=== PATIENT | male | born 1970 | race Caucasian/White ===

== ENCOUNTER 2021-10-28 05:28 | Emergency (ER) | payer BC ==
[2021-10-28] MEDS ORDERED: SODIUM CHLORIDE 0.9% 500 ML 500 ML IV STA (07:33)
--- NOTE | 2021-10-28 07:42 | ED ---
General Adult HPI - General Chief complaint: Back Pain/Injury Stated complaint: Worsening Kidney Infection Time Seen by Provider: 10/28/21 07:20 Source: patient, RN notes reviewed, old records reviewed Mode of arrival: ambulatory Limitations: no limitations - History of Present Illness Initial comments: 51-year-old male presents for evaluation of right-sided flank pain. Pain has been present for the past one week. He was started on antibiotic for suspected kidney infection by his primary care physician. He also had laboratory testing which apparently resulted in some abnormal kidney function. He states he's scheduled to see the urologist within this week. He denies fever. Denies vomiting. - Related Data Allergies Allergy/AdvReac Type Severity Reaction Status Date / Time bee venom protein (honey bee) Allergy Swelling Verified 10/28/21 05:48 Review of Systems ROS Statement: Those systems with pertinent positive or pertinent negative responses have been documented in the HPI. ROS Other: All systems not noted in ROS Statement are negative. Past Medical History Past Medical History: Asthma, Hypertension History of Any Multi-Drug Resistant Organisms: None Reported Past Surgical History: No Surgical Hx Reported Past Psychological History: No Psychological Hx Reported Smoking Status: Former smoker Past Alcohol Use History: Occasional Past Drug Use History: None Reported General Exam Limitations: no limitations General appearance: alert, in no apparent distress Head exam: Present: atraumatic, normocephalic Eye exam: Present: normal appearance, PERRL ENT exam: Present: normal exam Neck exam: Present: normal inspection. Absent: tenderness, meningismus Respiratory exam: Present: normal lung sounds bilaterally. Absent: respiratory distress Cardiovascular Exam: Present: regular rate, normal rhythm GI/Abdominal exam: Present: soft, tenderness (Right-sided). Absent: distended, guarding, rebound Extremities exam: Present: normal inspection, normal capillary refill. Absent: pedal edema Back exam: Absent: CVA tenderness (R), CVA tenderness (L) Neurological exam: Present: alert, oriented X3, CN II-XII intact. Absent: motor sensory deficit Psychiatric exam: Present: normal affect, normal mood Skin exam: Present: warm, dry, intact. Absent: cyanosis, diaphoretic Course Vital Signs 10/28/21 05:44 Temperature 97.8 F Pulse Rate 72 Respiratory 18 Rate Blood Pressure 161/105 O2 Sat by Pulse 98 Oximetry Medical Decision Making - Medical Decision Making 51-year-old male with right flank pain, workup was initiated, normal CBC, no leukocytosis, normal CMP, negative urinalysis, CT was performed which shows a nonobstructing right renal care but no hydronephrosis, no definitive process to explain the patient's pain. This point he can continue to follow up as an outpatient - Lab Data Result diagrams: 10/28/21 08:25 10/28/21 08:25 Lab Results 10/28/21 10/28/21 10/28/21 Range/Units 08:25 08:25 08:25 WBC 5.4 (3.8-10.6) k/uL RBC 4.66 (4.30-5.90) m/uL Hgb 15.7 (13.0-17.5) gm/dL Hct 44.2 (39.0-53.0) % MCV 94.9 (80.0-100.0) fL MCH 33.6 (25.0-35.0) pg MCHC 35.4 (31.0-37.0) g/dL RDW 13.1 (11.5-15.5) % Plt Count 158 (150-450) k/uL MPV 8.2 Neutrophils % 71 % Lymphocytes % 17 % Monocytes % 6 % Eosinophils % 4 % Basophils % 1 % Neutrophils # 3.8 (1.3-7.7) k/uL Lymphocytes # 0.9 L (1.0-4.8) k/uL Monocytes # 0.3 (0-1.0) k/uL Eosinophils # 0.2 (0-0.7) k/uL Basophils # 0.1 (0-0.2) k/uL PT 10.5 (9.0-12.0) sec INR 1.0 (<1.2) APTT 23.4 (22.0-30.0) sec Sodium (137-145) mmol/L Potassium (3.5-5.1) mmol/L Chloride (98-107) mmol/L Carbon Dioxide (22-30) mmol/L Anion Gap mmol/L BUN (9-20) mg/dL Creatinine (0.66-1.25) mg/dL Est GFR (CKD-EPI)AfAm (>60 ml/min/1.73 sqM) Est GFR (CKD-EPI)NonAf (>60 ml/min/1.73 sqM) Glucose (74-99) mg/dL Calcium (8.4-10.2) mg/dL Total Bilirubin (0.2-1.3) mg/dL AST (17-59) U/L ALT (4-49) U/L Alkaline Phosphatase (38-126) U/L Total Protein (6.3-8.2) g/dL Albumin (3.5-5.0) g/dL Lipase (23-300) U/L Urine Color Yellow Urine Appearance Clear (Clear) Urine pH 6.0 (5.0-8.0) Ur Specific [address] 1.026 (1.001-1.035) Urine Protein Negative (Negative) Urine Glucose (UA) Negative (Negative) Urine Ketones Negative (Negative) Urine Blood Negative (Negative) Urine Nitrite Negative (Negative) Urine Bilirubin Negative (Negative) Urine Urobilinogen <2.0 (<2.0) mg/dL Ur Leukocyte Esterase Negative (Negative) 10/28/21 Range/Units 08:25 WBC (3.8-10.6) k/uL RBC (4.30-5.90) m/uL Hgb (13.0-17.5) gm/dL Hct (39.0-53.0) % MCV (80.0-100.0) fL MCH (25.0-35.0) pg MCHC (31.0-37.0) g/dL RDW (11.5-15.5) % Plt Count (150-450) k/uL MPV Neutrophils % % Lymphocytes % % Monocytes % % Eosinophils % % Basophils % % Neutrophils # (1.3-7.7) k/uL Lymphocytes # (1.0-4.8) k/uL Monocytes # (0-1.0) k/uL Eosinophils # (0-0.7) k/uL Basophils # (0-0.2) k/uL PT (9.0-12.0) sec INR (<1.2) APTT (22.0-30.0) sec Sodium 141 (137-145) mmol/L Potassium 4.4 (3.5-5.1) mmol/L Chloride 105 (98-107) mmol/L Carbon Dioxide 26 (22-30) mmol/L Anion Gap 10 mmol/L BUN 24 H (9-20) mg/dL Creatinine 0.99 (0.66-1.25) mg/dL Est GFR (CKD-EPI)AfAm >90 (>60 ml/min/1.73 sqM) Est GFR (CKD-EPI)NonAf 88 (>60 ml/min/1.73 sqM) Glucose 100 H (74-99) mg/dL Calcium 9.0 (8.4-10.2) mg/dL Total Bilirubin 0.7 (0.2-1.3) mg/dL AST 32 (17-59) U/L ALT 34 (4-49) U/L Alkaline Phosphatase 90 (38-126) U/L Total Protein 6.9 (6.3-8.2) g/dL Albumin 4.4 (3.5-5.0) g/dL Lipase 84 (23-300) U/L Urine Color Urine Appearance (Clear) Urine pH (5.0-8.0) Ur Specific [address] (1.001-1.035) Urine Protein (Negative) Urine Glucose (UA) (Negative) Urine Ketones (Negative) Urine Blood (Negative) Urine Nitrite (Negative) Urine Bilirubin (Negative) Urine Urobilinogen (<2.0) mg/dL Ur Leukocyte Esterase (Negative) Disposition Clinical Impression: Flank pain Disposition: HOME SELF-CARE Condition: Fair Instructions (If sedation given, give patient instructions): Flank Pain (ED) Is patient prescribed a controlled substance at d/c from ED?: No Referrals: Nonstaff,Physician [Primary Care Provider] - 1-2 days Time of Disposition: 09:25
[2021-10-28] MEDS ORDERED: MORPHINE SULFATE 4 MG/ML SYRINGE IVP STA (08:11)
[2021-10-28 08:32] LABS: Basophils # (A) 0.1 k/uL (0-0.2); Basophils % (A) 1 %; Eosinophils # (A) 0.2 k/uL (0-0.7); Eosinophils % (A) 4 %; HCT 44.2 % (39.0-53.0); HGB 15.7 gm/dL (13.0-17.5); Lymphocytes # (A) 0.9 k/uL (1.0-4.8); Lymphocytes % (A) 17 %; MCH 33.6 pg (25.0-35.0); MCHC 35.4 g/dL (31.0-37.0); MCV 94.9 fL (80.0-100.0); Mean Platelet Volume 8.2; Monocytes # (A) 0.3 k/uL (0-1.0); Monocytes % (A) 6 %; Neutrophils # (A) 3.8 k/uL (1.3-7.7); Neutrophils % (A) 71 %; Platelet Count 158 k/uL (150-450); RBC 4.66 m/uL (4.30-5.90); RDW 13.1 % (11.5-15.5); WBC 5.4 k/uL (3.8-10.6)
[2021-10-28 08:41] LABS: ALT 34 U/L (4-49); African American GFR (CKD) >90 (>60 ml/min/1.73 sqM); Albumin 4.4 g/dL (3.5-5.0); Alkaline Phosphatase 90 U/L (38-126); Anion Gap 10 mmol/L; Carbon Dioxide 26 mmol/L (22-30); Chloride 105 mmol/L (98-107); Lipase 84 U/L (23-300); Non-African American GFR(CKD) 88 (>60 ml/min/1.73 sqM); Potassium 4.4 mmol/L (3.5-5.1); Sodium 141 mmol/L (137-145); Total Protein 6.9 g/dL (6.3-8.2)
[2021-10-28 08:42] LABS: Glucose 100 mg/dL (74-99)
[2021-10-28 08:43] LABS: AST 32 U/L (17-59); Blood Urea Nitrogen 24 mg/dL (9-20); Total Bilirubin 0.7 mg/dL (0.2-1.3)
[2021-10-28 08:47] LABS: Partial Thromboplastin Time 23.4 sec (22.0-30.0); Prothrombin Time 10.5 sec (9.0-12.0)
--- NOTE | 2021-10-28 08:58 | CT ---
EXAMINATION TYPE: CT abdomen pelvis wo con CT DLP: 775 mGycm, Automated exposure control for dose reduction was used. DATE OF EXAM: 10/28/2021 8:42 AM COMPARISON: None. CLINICAL INDICATION:Male, 51 years old with history of Rt flank pain; TECHNIQUE: Standard CT of the abdomen and pelvis without IV or oral contrast. Lack of IV or oral co ntrast limits evaluation of solid and hollow organ viscera. Coronal and sagittal reformats were perfo rmed. FINDINGS: LOWER CHEST: Unremarkable ABDOMEN LIVER: Unremarkable GALLBLADDER AND BILE DUCTS: Unremarkable. PANCREAS: Unremarkable. SPLEEN: Unremarkable. ADRENAL GLANDS: Unremarkable. KIDNEYS AND URETERS: Nonobstructing 3 mm right renal calculus. Right cortical renal cyst. PELVIS BLADDER: Unremarkable REPRODUCTIVE: Prostate is enlarged in size measuring 5.1 cm in transverse dimension. ABDOMEN & PELVIS STOMACH AND BOWEL: Scattered diverticula are noted throughout the colon. No evidence of bowel obstruc tion. Appendix is normal. There is a large stool burden throughout the right colon. PERITONEUM: No evidence of pneumoperitoneum or free fluid. There is a xavier mesentery. VASCULATURE: No evidence of aortic aneurysm. MUSCULOSKELETAL: No acute osseous abnormalities. Mild disc degeneration changes are present throughou t the thoracolumbar spine. LYMPH NODES: No gross evidence for lymphadenopathy. SOFT TISSUE/ABDOMINAL WALL: Unremarkable IMPRESSION: 1. No evidence for acute abdominal process to explain patient's right flank pain. 2. Nonspecific xavier mesentery which could represent sclerosing panniculitis. 3. Nonobstructing right renal calculus. 4. Colonic diverticulosis. 5. Normal appendix. 6. Prostatomegaly.
[2021-10-28 09:21] LABS: Appearance,Urine Clear (Clear); Bilirubin,Urine Negative (Negative); Blood,Urine Negative (Negative); Color,Urine Yellow; Glucose,Urine (UA) Negative (Negative); Ketones,Urine Negative (Negative); Leukocyte Esterase,Urine Negative (Negative); Nitrite,Urine Negative (Negative); Protein,Urine Negative (Negative); Specific Gravity,Urine 1.026 (1.001-1.035); Urobilinogen,Urine <2.0 mg/dL (<2.0)
[2021-10-28 09:52] VITALS: BP 152/81; PULSE 65; RESP 16; TEMP 97.9
== END 2021-10-28 09:58 | disposition home or self-care (01) ==
LOC: EC 05:28
DX: K57.30 Diverticulosis of large intestine without perforation or abscess without bleeding (principal); I10 Essential (primary) hypertension; J45.909 Unspecified asthma, uncomplicated; Z87.891 Personal history of nicotine dependence; Z91.030 Bee allergy status
CPT/HCPCS: 36415; 80053; 83690; 85025; 85610; 85730; 81003; 74176; 99284; 96374; J2270

== ENCOUNTER → 2023-01-07 | Outpatient (CLI) | payer BC ==
--- NOTE | 2023-01-07 14:15 | P.SLEEP ---
History of Present Illness DATE: 01/07/2023 CONSULTATION/NEW PATIENT EVALUATION HISTORY OF PRESENT ILLNESS/SLEEP-WAKE EVALUATION: 52 year old gentleman had been evaluated in the sleep center for possible obstructive sleep apnea hypopnea syndrome. Patient has history of obstructive sleep apnea diagnosed about 10 years ago. At that time she was started on treatment with CPAP, but use it for short period of time, because patient lost weight and feels better. For the next year she is using again increased his weight and developed more problems. SLEEP SCHEDULE: Usually sleep schedule from 10 PM to 4:30 AM on weekdays and from 9 PM to 9 AM on weekend. FALLING ASLEEP: Problems with falling asleep. DURING SLEEP: Patient has loud snoring, witnessed episodes of stop breathing during the sleep. Patient wakes up from sleep 3 times. No history of hypnogogical hallucinations, sleep paralysis, or cataplexy. DURING THE DAY/WAKE STATE: In the morning patient wake up tired, has difficulties to place attention, has problems with memory and concentration. [place] sleepiness scale is 8, while patient is on treatment with Adderall 30 mg twice a day. Usually patient doesn't take naps. PAST MEDICAL HISTORY: ADHD, hypertension, asthma. PAST SURGICAL HISTORY: Right arm surgery in childhood. MEDICATIONS: Adderall 30 mg twice a day, losartan 100 mg once a day, albuterol as needed. SOCIAL HISTORY: Negative for smoking, alcohol consumption occasional. FAMILY HISTORY: Hypertension, heart problems, cancer. REVIEW OF SYSTEMS: Loud snoring, multiple awakenings from sleep, sleepiness during the day. No fevers. No double vision. No recent chest pain. No shortness of breath. No abdominal pain. No bleeding episodes. No blood in urine. No seizure episodes. PHYSICAL EXAMINATION: GENERAL: A pleasant patient without any distress. VITAL SIGNS: BP 167/111, HR 84, RR 18, weight 242.2 pounds, height 5 foot 5 inches, body mass index 40.2. HEENT: PERRLA, EOMI. Evaluation of oropharynx showed tongue protrudes midline, low position of soft palate Mallampati 4. NECK: Supple. No JVD. Thyroid is not palpable. 19.5 inches in circumference. LUNGS: Clear to percussion and to auscultation. Good air exchange. No wheezing or rhonchi. HEART: S1, S2 regular. No murmurs, gallops or rubs. ABDOMEN: Soft and nontender. Bowel sounds are present. No organomegaly appreciated. Obese EXTREMITIES: No clubbing or cyanosis. PIPE STRESS ENGINEER: Awake, alert, and oriented x3. Cranial nerves 2 to 7 intact. There is no fasciculation or atrophy noted. No focal deficits observed. ASSESSMENT: 1. Loud snoring, multiple awakenings from sleep, extremely low position of soft palate Mallampati 4, extremely wide neck 19.5 inches in circumference, sleepiness, history of obstructive sleep apnea in the past. Obstructive sleep apnea hypopnea syndrome. 2. Significant sleepiness. [place] sleepiness scale is 8 while patient is on Adderall 30 mg twice a day. 3. History of ADHD. 4. Hypertension. 5 asthma. 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 PLAN: 1. Home sleep apnea test for evaluation of patient's breathing during sleep. 2. Following plan after reading sleep study 3. Preferable position during sleep on the side. 4. No driving if patient feels any sleepiness. Patient is aware of civil and criminal liability for unsafe driving. 5. Sleep hygiene with regular sleep time for at least 7.5-8 hours. 6. Watching and losing weight. Thank you very much for referring this patient for consultation. Sincerely, Isra Skinner MD, PhD, FAASM. Diplomat of [place] [employer], Sleep Medicine Board by [place] [employer] [place] [employer] Investigation Division Sergeant [facility] [place] Past Medical History Past Medical History: Asthma, Hypertension History of Any Multi-Drug Resistant Organisms: None Reported Past Surgical History: No Surgical Hx Reported Past Psychological History: No Psychological Hx Reported Smoking Status: Former smoker Past Alcohol Use History: Occasional Past Drug Use History: None Reported Medications and Allergies Home Medications Medication Instructions Recorded Confirmed Type Albuterol Sulfate [Proair Hfa] 2 puff INHALATION DIRECTED PRN 10/28/21 10/28/21 History Budesonide/Formoterol Fumarate 2 puff INHALATION DIRECTED 10/28/21 10/28/21 History [Symbicort 80-4.5 Mcg Inhaler] Cyanocobalamin (Vitamin B-12) 1,000 mcg PO DAILY 10/28/21 10/28/21 History [Vitamin B-12] Dextroamphetamine/Amphetamine 30 mg PO BID@0700,1400 10/28/21 10/28/21 History [Adderall] EPINEPHrine (Auto Inject) [Epipen] 0.3 mg IM ONCE PRN 10/28/21 10/28/21 History Ipratropium-Albuterol Nebulize 3 ml INHALATION DIRECTED PRN 10/28/21 10/28/21 History [Duoneb 0.5 mg-3 mg/3 ml Soln] Losartan [Cozaar] 50 mg PO DAILY 10/28/21 10/28/21 History Montelukast [Singulair] 10 mg PO DAILY 10/28/21 10/28/21 History Multivitamins, Thera [Multivitamin 1 tab PO DAILY 10/28/21 10/28/21 History (formulary)] Sildenafil [Revatio] 20 - 40 mg PO DAILY PRN 10/28/21 10/28/21 History Sulfamethox-Tmp 800-160Mg [Bactrim 1 tab PO BID 10/28/21 10/28/21 History DS 800-160 mg] Allergies Allergy/AdvReac Type Severity Reaction Status Date / Time bee venom protein (honey bee) Allergy Anaphylaxis Verified 10/28/21 09:58 Sleep Note - Sleep Note Sleep Note: Temperature: Pulse Rate: Respiratory Rate: Blood Pressure: SpO2: Height: Weight: BMI: Neck Circumference:
== END ==
LOC: 3 N SLEEP 13:43
PROVIDERS: ATTEND Internal Medicine
DX: G47.33 Obstructive sleep apnea (adult) (pediatric) (principal); I10 Essential (primary) hypertension; J45.909 Unspecified asthma, uncomplicated; F90.9 Attention-deficit hyperactivity disorder, unspecified type; Z79.51 Long term (current) use of inhaled steroids; Z79.899 Other long term (current) drug therapy; Z91.030 Bee allergy status
CPT/HCPCS: 99211

== ENCOUNTER → 2023-01-21 | Outpatient (CLI) | payer BC | LOC: 3 N SLEEP 17:02 | PROVIDERS: ATTEND Internal Medicine | DX: G47.33 Obstructive sleep apnea (adult) (pediatric) (principal); Z91.030 Bee allergy status ==

== ENCOUNTER → 2023-03-18 | Outpatient (CLI) | payer BC ==
--- NOTE | 2023-03-25 10:35 | P.PCN ---
Description of Procedure: CLINICAL: A home sleep apnea test has been done for confirmation of possible obstructive sleep apnea-hypopnea syndrome. DESCRIPTION OF PROCEDURE: RESULTS: Recording time was 5 hours 56 minutes. Evaluation time was 5 hours 46 minutes. Evaluation time is sufficient for making conclusion about results of the test. Raw data of sleep recording has been reviewed and is adequate. Respiratory channel showed 59 apneas and 274 hypopneas. Apnea-hypopnea index was 57.7 per hour. Pulse rate in the range between minimum 54, maximum 114, average 82 by computer calculation. Lowest desaturation was 62 %. IMPRESSION: 1. Severe Obstructive Sleep Apnea Hypopnea Syndrome with severe oxygen desaturation. Please see other impressions from consultation. PLAN: 1. The patient should have PAP titration for correction of respiratory abnormallities during sleep. 2. I will see patient for follow up visit to discuss results of the test, melissa terryate clinical response on treatment with PAP therapy and make any necessary adjustments related to mask fitting, pressure, and humidification. 3. Watching and losing weight. 4. Sleep hygiene with regular time in bed for at least 8 hours. 5. No driving if feeling any sleepiness. Thank you very much for allowing me to participate in the management of your patient. Sincerely, Isra Skinner MD, PhD, FAASM Diplomat of [place] [employer] Sleep Medicine Board of [place] [employer] of Internal Medicine Auto Appraiser [facility] [place]
== END ==
LOC: 3 N SLEEP 16:53
PROVIDERS: ATTEND Internal Medicine
DX: G47.33 Obstructive sleep apnea (adult) (pediatric) (principal); Z99.89 Dependence on other enabling machines and devices; Z91.030 Bee allergy status

== ENCOUNTER → 2023-05-05 | Outpatient (CLI) | payer BC ==
--- NOTE | 2023-05-05 17:35 | CT ---
EXAMINATION TYPE: CT brain wo con CT DLP: 1150.5 mGycm, Automated exposure control for dose reduction was used. DATE OF EXAM: 05/05/2023 4:47 PM COMPARISON: 09/19/2010.. CLINICAL INDICATION:Male, 53 years old with history of I61.9 NONTRAUMATIC INTRACEREBRAL HEMORRHAGE, U NSPE, nontraumatic brain bleed x 6 weeks ago. Hypertension TECHNIQUE: Brain: Axial CT images of the brain were obtained with coronal and sagittal reformats created and rev iewed. Contrast used: None. Oral contrast used: None. FINDINGS: Brain: Extra-axial spaces: No abnormal extra-axial fluid collections. Ventricular system: Within normal limits Cerebral parenchyma: Low-density region within the right thalamus extending into the joyner radiata. No acute intraparenchymal hemorrhage or mass effect. The guerrier-white junction is well differentiated. Cerebellum: Unremarkable. Mass effect: No evidence of midline shift. Intracranial vasculature: unremarkable Soft tissues: Normal. Calvarium/osseous structures: No depressed skull fracture. Paranasal sinuses and mastoid air cells: Mild scattered paranasal sinus disease. Visualized orbits: Orbital contents are intact. IMPRESSION: 1. No evidence for intracranial hemorrhage or acute process. 2. Age-indeterminate injury to the right thalamus and right joyner radiata. New from 2010. This coul d possibly correlate with patient's injury 6 weeks ago. No prior imaging is available.
--- NOTE | 2023-05-06 08:42 | XR ---
EXAMINATION TYPE: XR shoulder complete BILAT DATE OF EXAM: 05/05/2023 COMPARISON: NONE HISTORY: Pain TECHNIQUE: Three views are submitted. FINDINGS: The osseous structures are intact. There is no acute fracture or dislocation. Moderate right-sided h ypertrophic arthropathy of the AC joint. Mild hypertrophic arthropathy of the left AC joint. IMPRESSION: 1. Bilateral hypertrophic arthropathy of the AC joint correlate for impingement..
== END | disposition home or self-care (01) ==
LOC: RADCTMAIN 16:29
PROVIDERS: ATTEND Neurological Surgery
DX: I61.9 Nontraumatic intracerebral hemorrhage, unspecified (principal); M25.512 Pain in left shoulder
CPT/HCPCS: 70450

== ENCOUNTER 2023-05-24 19:47 | Outpatient (CLI) | payer BC ==
--- NOTE | 2023-05-26 15:19 | P.PCN ---
Description of Procedure: CLINICAL: Titration with positive air pressure has been done for correction of respiratory abnormalities during sleep. DESCRIPTION OF PROCEDURE: The standard montage for clinical polysomnography included the electroencephalogram, the electrocardiogram, the mentalis surface electromyography and Lead II cardiography. The respiratory battery consisted of measurements of nasal /buccal air flow, pressure transducer measurements from the nose, thoracic and /or abdominal effort and intercostal surface electromyography. Video monitoring has been done to check for any parasomnia events. Nocturnal oxyhemoglobin saturations were obtained by finger oximetry. Step-moore titration with positive airway pressure was utilized to control respiratory events. Raw data of sleep recording has been reviewed and is adequate. RESULTS: Sleep efficiency was significantly decreased to 65.8 %. Latency to sleep onset was prolonged to 58.5 minutes.]. Sleep architecture showed stage N1 was increased to 13.9 %, Delta sleep was absent 0 %, REM sleep was in normal range 26.8 %. Heart rate was minimum 62 BPM, maximum 77 BPM, average 69 BPM. EMG showed 4.2 periodic limb movements per hour with 2.5 micriarousals per hour. PAP titration have been done with CPAP up to the pressure 15 cm H2O. Patient had problems with CPAP, switched to BPAP. BPAP titrated up to 24/20 cm H2O. At the high pressure patient developed central apneas. At the pressure 21/17 cm H2O apnea hypopnea index reduced to 29.8, at all others pressure apnea-hypopnea index was higher. IMPRESSION: 1. Severe obstructive sleep apnea hypopnea syndrome with apnea-hypopnea index 57.7 by results of home sleep apnea test, which may underestimate severity of sleep apnea. During titration respiration improved, but patient developed central apneas and continued to have very significant abnormalities of respiration close to severe range. 2. No significant periodic limb movements have been documented. Please see other impressions from consultation. PLAN: 1. Repeat Pap titration, should be done slowly. If necessary BiPAP ST mode. 2. Aggressive losing weight. 3. Sleep hygiene with regular time in bed for at least 7-05/16 hours. 4. Precautions related to driving, no driving if feel any sleepiness Thank you very much for allowing me to participate in the management of your patient. Sincerely, Isra Skinner MD, PhD, FAASM Diplomat of [employer] Sleep Medicine Board of [employer] Board of Internal Medicine Instructor Of [employer] [facility] [place]
== END 2023-05-25 05:47 | disposition home or self-care (01) ==
LOC: 3 N SLEEP 19:47
PROVIDERS: ATTEND Internal Medicine
DX: G47.33 Obstructive sleep apnea (adult) (pediatric) (principal); G47.31 Primary central sleep apnea; Z91.030 Bee allergy status
CPT/HCPCS: 95811

== ENCOUNTER 2023-06-27 19:52 | Outpatient (CLI) | payer BC ==
--- NOTE | 2023-07-01 14:20 | P.PCN ---
Description of Procedure: CLINICAL: Titration with positive air pressure has been done for correction of respiratory abnormalities during sleep. DESCRIPTION OF PROCEDURE: The standard montage for clinical polysomnography included the electroencephalogram, the electrocardiogram, the mentalis surface electromyography and Lead II cardiography. The respiratory battery consisted of measurements of nasal /buccal air flow, pressure transducer measurements from the nose, thoracic and /or abdominal effort and intercostal surface electromyography. Video monitoring has been done to check for any parasomnia events. Nocturnal oxyhemoglobin saturations were obtained by finger oximetry. Step-moore titration with positive airway pressure was utilized to control respiratory events. Raw data of sleep recording has been reviewed and is adequate. CLINICAL: Patient has been seen in the sleep center for evaluation of ob structive sleep apnea-hypopnea syndrome. Please see my consultation. Sleep study has been done for evaluation of patient breathing during the sleep. PROCEDURE: The standard montage for clinical polysomnography included the electroencephalogram, the electrooculogram, the mentalis surface electromyography and Lead II cardiography. The respiratory battery consisted of measurements of nasal/buccal air flow, pressure transducer measurements from nose, thoracic and/or abdominal effort and intercostal surface electromyography. Video monitoring has been done to check for any parasomnia events. Nocturnal oxyhemoglobin saturations were obtained by finger oximetry. Step-moore titration with positive airway pressure was utilized to control the respiratory events, if necessary. RESULTS: During the diagnostic sleep study sleep efficiency was slightly decreased to 84.9%. Latency to sleep onset was normal 18.0 min. Sleep architecture showed stage NI was extremely short 1.0%, Delta sleep was normal 7.8%, REM sleep was significantly increased to 36.2%. Latency to REM sleep was slightly short 63.5 minutes. Heart rate was minimum 59 BPM, maximum 70 BPM, average 63 BPM. EMG showed 0 periodic limb movements per hour. PAP titration have been done with BPAP up to the pressure 16/13 cm H2O. The best results were at the pressure 15/12 cm H2O. Apnea hypopnea index reduced to 1.6. IMPRESSION: 1. Obstructive sleep apnea hypopnea syndrome on controle with BPAP treatment. 2. No significant periodic limb movements have been documented. Please see other impressions from consultation. PLAN: 1. The patient will have treatment with positive air pressure equipment with the level of pressure AutoBPAP with minimal expiratory pressure 5 and maximal inspiratory pressure 16, pressure support 4 cm H2O and should use it every night for the whole night. 2. Watching and losing weight. 3. Sleep hygiene with regular time in bed for at least 8 hours. 4. No driving if feeling any sleepiness. 5. I will see the patient for follow up visit to explain the results of the test, recommendations, check compliance with treatment and make any necessary adjustment related to mask fitting, pressure and humidification. Thank you very much for allowing me to participate in the management of your patient. Sincerely, Isra Skinner MD, PhD, FAASM Diplomat of [place] [employer] Sleep Medicine Board of [place] [employer] Medicine Admissions Director of [facility] [place]
== END 2023-06-28 05:30 | disposition home or self-care (01) ==
LOC: 3 N SLEEP 19:52
PROVIDERS: ATTEND Internal Medicine
DX: G47.33 Obstructive sleep apnea (adult) (pediatric) (principal); G47.61 Periodic limb movement disorder; Z99.89 Dependence on other enabling machines and devices; Z91.030 Bee allergy status; Z88.2 Allergy status to sulfonamides
CPT/HCPCS: 95811

== ENCOUNTER → 2023-08-25 | Outpatient (CLI) | payer BC ==
--- NOTE | 2023-08-25 16:35 | P.PN ---
Subjective DATE: 08/25/2023 FOLLOW UP VISIT. Patient with obstructive sleep apnea hypopnea syndrome return to sleep center for follow-up visit. Recently patient had sleep study which documented obstructive sleep apnea hypopnea syndrome. Patient was initiated on PAP therapy and today is first visit after treatment was started. Patient was able to use PAP equipment every night for the whole night. The patient does not have significant problems with the mask, PAP pressure and humidification. Porter sleepiness scale is 3, which is normal. I checked information from PAP unit. PAP unit pressure maximal inspiratory pressure 16, minimal expiratory pressure of 5, pressure support 4, average pressure 15.6/11.6 cm H2O. Usage is 100% for more then 4 hours, average 7.6 hours per night. Leak is 7.6 l/m, which is in acceptable range. Apnea Hypopnea Index is increased to 14.4. MEDICATIONS:1. Adderall 30 mg twice a day 2. Losartan 100 mg once a day 3. Albuterol as needed During physical exam: GENERAL: A pleasant patient without any distress. VITAL SIGNS: Please see below. HEENT: PERRLA, EOMI.low position of soft palate, Mallapati 4 . NECK: Supple. No JVD. LUNGS: Clear to percussion and to auscultation. Good air exchange. No wheezing or rhonchi. HEART: S1, S2 regular. ABDOMEN: Soft and nontender.[] EXTREMITIES: No clubbing or cyanosis. HOSPICE SPIRITUAL CARE COORDINATOR: Awake, alert, and oriented x3. No focal deficit. Impressions: 1. Severe obstructive sleep apnea-hypopnea syndrome, apnea hypopnea index during diagnostic sleep study 57.7. Patient demonstrated great compliance with treatment, benefiting from treatment. Apnea hypopnea index reduced to 14.4, which still above normal range. 2. History of ADHD. 3. Hypertension. 4. Asthma. 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 I changed pressure to maximal inspiratory pressure 19 centimeters of water, expiratory pressure and pressure support will stay the same. Plan: 1. Continue using PAP equipment every night for the whole night. 2. To change air filter at least 1-2 times per month. 3. PAP unit should stay lower then position of the head. 4. Advised patient to remove all remaining water from humidifier canister daily and make it dry after each usage. Refill canister with fresh distilled water before each usage. 5. Sleep hygiene with regular time in bed for at least 8 hours. 6. Precautions related to driving. No driving if feel any sleepiness. 7. I will maintain prescription for PAP supplies including mask, tube, filters. 8. Watching and losing weight. 9. Follow up visit in 4 months or earlier if patient has any problems. Thank you very much for allowing me to participate in the management of your patient. Isra Skinner MD, PhD, FAASM. Diplomat of [place], Sleep Medicine Board by [employer] Project Production Engineer of [facility] [place] Objective - Vital Signs Vital signs: Vital Signs Temp Pulse 83 08/25/23 16:17 Resp 20 08/25/23 16:17 BP 130/83 08/25/23 16:17 Pulse Ox 97 08/25/23 16:17 FiO2 Intake & Output 08/24/23 08/25/23 08/25/23 18:59 06:59 18:59 Weight 115.666 kg
[2023-08-25 16:43] VITALS: BP 130/83; PULSE 83; RESP 20
== END ==
LOC: 3 N SLEEP 16:08
PROVIDERS: ATTEND Internal Medicine
DX: G47.33 Obstructive sleep apnea (adult) (pediatric) (principal); I10 Essential (primary) hypertension; F90.9 Attention-deficit hyperactivity disorder, unspecified type; J45.909 Unspecified asthma, uncomplicated; Z79.899 Other long term (current) drug therapy; Z99.89 Dependence on other enabling machines and devices; Z91.030 Bee allergy status; Z79.51 Long term (current) use of inhaled steroids
CPT/HCPCS: 99212

== ENCOUNTER → 2023-12-29 | Outpatient (CLI) | payer BC ==
[2023-12-29 16:48] VITALS: BP 142/94; PULSE 89; RESP 18; TEMP 97.2
--- NOTE | 2023-12-29 17:36 | P.PROGSL ---
Subjective DATE: 12/29/2023 FOLLOW UP VISIT. Patient with obstructive sleep apnea hypopnea syndrome return to sleep center for follow-up visit. Information from previous visit have been reviewed. Patient is using PAP equipment every night for the whole night, getting PAP supplies in time. The patient does not have significant problems with the mask, PAP unit and humidification. [place] sleepiness scale is 4, which is normal. I checked information from PAP unit. PAP unit pressure maximal inspiratory pressure 19, minimal expiratory pressure 5, average pressure 16.5 /12.5 cm H2O. Usage is 100% for more then 4 hours, average 7.4 hours per night. Leak is very minimal 2 l/m. Apnea Hypopnea Index is 9.0, which include 3.8 centrals. Improvement comparing with the previous visit when apnea-hypopnea index was 14.4 and I increased maximal inspiratory pressure to 19 cm of water okay okay I meant 3. MEDICATIONS have been reviewed, please see below. During physical exam: GENERAL: A pleasant patient without any distress. VITAL SIGNS: Please see below, weight is 265.6 lbs. HEENT: PERRLA, EOMI.low position of soft palate, Mallapati 4 . NECK: Supple. No JVD. LUNGS: Clear to percussion and to auscultation. Good air exchange. No wheezing or rhonchi. HEART: S1, S2 regular. ABDOMEN: Soft and nontender. Obese EXTREMITIES: No clubbing or cyanosis. JUNIOR ACCOUNTING CLERK: Awake, alert, and oriented x3. Some light left-sided weakness. Impressions: 1. Severe obstructive sleep apnea-hypopnea syndrome, original apnea hypopnea index 57.7. Patient demonstrated great compliance with treatment, benefiting from treatment. 2. Status post hemorrhagic stroke in 2022 with residual left-sided weakness. 3. History of ADHD. 4. Hypertension. 5. Asthma. 6. 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 7. Obesity, BMI 43.8. Plan: 1. Continue using PAP equipment every night for the whole night. 2. Sleep hygiene with regular time in bed for at least 7.5-8 hours 3. PAP unit should stay lower then position of the head. 4. Advised patient to remove all remaining water from humidifier canister daily and make it dry after each usage. Refill canister with fresh distilled water before each usage. 5. Watching and losing weight. 6. Precautions related to driving. No driving if feel any sleepiness. 7. I will maintain prescription for PAP supplies including mask, tube, filters. 8. Follow up visit in 4 months or earlier if patient has any problems. Thank you very much for allowing me to participate in the management of your patient. Isra Skinner MD, PhD, FAASM. Diplomat of [employer], Sleep Medicine Board by [employer] Heel Seater of [facility] [place] Objective - Vital Signs Vital Signs: Vital Signs Temp 97.2 F L 12/29/23 16:47 Pulse 89 12/29/23 16:47 Resp 18 12/29/23 16:47 BP 142/94 12/29/23 16:47 Pulse Ox 94 L 12/29/23 16:47 FiO2 Intake & Output 12/28/23 12/29/23 12/29/23 18:59 06:59 18:59 Weight 120.372 kg Home Medications: Home Medications Medication Instructions Recorded Confirmed Type Albuterol Sulfate [Proair Hfa] 2 puff INHALATION DIRECTED PRN 10/28/21 10/28/21 History Budesonide/Formoterol Fumarate 2 puff INHALATION DIRECTED 10/28/21 10/28/21 History [Symbicort 80-4.5 Mcg Inhaler] Cyanocobalamin (Vitamin B-12) 1,000 mcg PO DAILY 10/28/21 10/28/21 History [Vitamin B-12] Dextroamphetamine/Amphetamine 30 mg PO BID@0700,1400 10/28/21 10/28/21 History [Adderall] EPINEPHrine (Auto Inject) [Epipen] 0.3 mg IM ONCE PRN 10/28/21 10/28/21 History Ipratropium-Albuterol Nebulize 3 ml INHALATION DIRECTED PRN 10/28/21 10/28/21 History [Duoneb 0.5 mg-3 mg/3 ml Soln] Losartan [Cozaar] 50 mg PO DAILY 10/28/21 10/28/21 History Montelukast [Singulair] 10 mg PO DAILY 10/28/21 10/28/21 History Multivitamins, Thera [Multivitamin 1 tab PO DAILY 10/28/21 10/28/21 History (formulary)] Sildenafil [Revatio] 20 - 40 mg PO DAILY PRN 10/28/21 10/28/21 History Sulfamethox-Tmp 800-160Mg [Bactrim 1 tab PO BID 10/28/21 10/28/21 History DS 800-160 mg]
== END ==
LOC: 3 N SLEEP 16:20
PROVIDERS: ATTEND Internal Medicine
CPT/HCPCS: 99212

== ENCOUNTER 2024-01-11 19:40 | Observation (INO) | payer BC ==
--- NOTE | 2024-01-11 19:57 | ED ---
Chest Pain HPI - General Source: patient, family, RN notes reviewed Mode of arrival: wheelchair Limitations: no limitations <Cleo Soto - Last Filed: 01/11/24 19:55> <Odalys George - Last Filed: 01/11/24 23:23> - General Chief Complaint: Chest Pain Stated Complaint: Chest Pain Time Seen by Provider: 01/11/24 19:56 - History of Present Illness Initial Comments: Quick [id number] male presents emergency department chief complaint of chest pressure and squeezing that will radiate into his back. Symptoms started yesterday. States that the symptoms are worse with activity and he feels short of breath with this. Denies history of NH. denies current blood thinner use (Cleo Soto) Patient is a 53-year-old male with past medical history of prior CVA presenting today for exertional chest pain. Pt states that this morning when he got up he had squeezing chest pain with exertion. States it feels like someone is wrapping her hands around his chest and squeezing. No associated exertional shortness of breath. Pain resolves with rest. Did take 2 tablets ASA this morning. No cardiac hx. Pt's father had an NH in his 50s. Currently denies chest pain at rest. Denies diaphoresis, fever, chills, abdominal pain, nausea, vomiting, melena, hematochezia. Endorses dry cough but no sputum production or hemoptysis. No lightheadedness or dizziness. (Odalys George) - Related Data Home Medications Medication Instructions Recorded Confirmed Albuterol Sulfate [Proair Hfa] 2 puff INHALATION DIRECTED PRN 10/28/21 10/28/21 Budesonide/Formoterol Fumarate 2 puff INHALATION DIRECTED 10/28/21 10/28/21 [Symbicort 80-4.5 Mcg Inhaler] Cyanocobalamin (Vitamin B-12) 1,000 mcg PO DAILY 10/28/21 10/28/21 [Vitamin B-12] Dextroamphetamine/Amphetamine 30 mg PO BID@0700,1400 10/28/21 10/28/21 [Adderall] EPINEPHrine (Auto Inject) [Epipen] 0.3 mg IM ONCE PRN 10/28/21 10/28/21 Ipratropium-Albuterol Nebulize 3 ml INHALATION DIRECTED PRN 10/28/21 10/28/21 [Duoneb 0.5 mg-3 mg/3 ml Soln] Losartan [Cozaar] 50 mg PO DAILY 10/28/21 10/28/21 Montelukast [Singulair] 10 mg PO DAILY 10/28/21 10/28/21 Multivitamins, Thera [Multivitamin 1 tab PO DAILY 10/28/21 10/28/21 (formulary)] Sildenafil [Revatio] 20 - 40 mg PO DAILY PRN 10/28/21 10/28/21 Sulfamethox-Tmp 800-160Mg [Bactrim 1 tab PO BID 10/28/21 10/28/21 DS 800-160 mg] Allergies Allergy/AdvReac Type Severity Reaction Status Date / Time bee venom protein (honey bee) Allergy Anaphylaxis Verified 01/11/24 19:49 Sulfa (Sulfonamide Allergy Anaphylaxis Verified 01/11/24 19:49 Antibiotics) Review of Systems ROS Other: All systems not noted in ROS Statement are negative. <Cleo Soto - Last Filed: 01/11/24 19:55> ROS Other: All systems not noted in ROS Statement are negative. <Odalys George - Last Filed: 01/11/24 23:23> ROS Statement: Those systems with pertinent positive or pertinent negative responses have been documented in the HPI. EKG Findings - EKG Comments: EKG Findings:: Sinus rhythm, rate 62 bpm, VA interval 198 ms, QT/QTc 397/400 ms, normal axis, no ST elevations or depressions, no arrhythmia, no delta waves or Brugada pattern <Odalys George - Last Filed: 01/11/24 23:23> Past Medical History Past Medical History: Asthma, CVA/TIA, Hypertension History of Any Multi-Drug Resistant Organisms: None Reported Past Surgical History: No Surgical Hx Reported Additional Past Surgical History / Comment(s): drain Past Psychological History: No Psychological Hx Reported Smoking Status: Former smoker Past Alcohol Use History: Occasional Past Drug Use History: None Reported <Cleo Soto - Last Filed: 01/11/24 19:55> General Exam Limitations: no limitations <Cleo Soto - Last Filed: 01/11/24 19:55> <Odalys George - Last Filed: 01/11/24 23:23> - General Exam Comments Initial Comments: Visual Physical Exam Vital signs reviewed General: Well-appearing, nontoxic, no acute distress. Head: Normocephalic, atraumatic Eyes: PERRLA, EOMI ENT: Airway patent Chest: Nonlabored breathing Skin: No visual rash, normal skin tone Neuro: Alert and oriented 3 Musculoskeletal: No gross abnormalities (Cleo Soto) PE: CONSTITUTIONAL: No apparent distress, well appearing SKIN: Warm, dry, no jaundice, hives or petechiae EYES: Pupils are equally round, extraocular movements intact without nystagmus, clear conjunctiva, non-icteric sclera HENT: Normocephalic, atraumatic, moist mucus membranes, oropharynx clear without exudates NECK: , Full range of motion, normal appearance PULMONARY: Clear to auscultation without wheezes, rhonchi, or rales, normal excursion, no accessory muscle use and no stridor CARDIOVASCULAR: Regular rate, rhythm, normal S1 and S2. No appreciated murmurs, rubs or gallops. Strong radial pulses with intact distal perfusion. No lower extremity edema GASTROINTESTINAL: Soft, non-tender, non-distended, no palpable masses, no rebound or guarding. No hepatosplenomegaly GENITOURINARY: MUSCULOSKELETAL: Tenderness to palpation overlying the right patella without deformity, swelling, warmth, redness or bruising, pain with passive and active flexion of the right knee, otherwise extremities have no gross deformity, no edema, redness, or swelling. No calf swelling or. NEUROLOGIC:_a/o x 3, GCS 15, normal mentation and speech. Weakness, chronic of the left upper extremity, otherwise moves all extremities without motor or sensory deficit PSYCHIATRIC:_normal mood and affect, thought process is clear and linear (Odalys George) Course Vital Signs 01/11/24 01/11/24 19:49 22:11 Temperature 97.8 F Pulse Rate 67 75 Respiratory 18 18 Rate Blood Pressure 135/95 145/99 O2 Sat by Pulse 98 97 Oximetry Chest Pain MDM <Cleo Soto - Last Filed: 01/11/24 19:55> <Odalys George - Last Filed: 01/11/24 23:23> - CLARKE I completed the quick note portion of this chart signed Cleo Soto PA-C (Cleo Soto) Was pt. sent in by a medical professional or institution ([facility], DECK SPECIALIST, urgent care, hospital, or custodial...) When possible be specific @ -No Did you speak to anyone other than the patient for history (EMS, parent, family, police, friend...)? What history was obtained from this source @ -No Did you review nursing and triage notes (agree or disagree)? Why? @ -I reviewed and agree with nursing and triage notes Were old charts reviewed (outside hosp., previous admission, EMS record, old EKG, old radiological studies, urgent care reports/EKG's, custodial records)? Report findings @ -No old charts were reviewed Differential Diagnosis (chest pain, altered mental status, abdominal pain women, abdominal pain men, vaginal bleeding, weakness, fever, dyspnea, syncope, headache, dizziness, GI bleed, back pain, seizure, CVA, palpatations, mental health, musculoskeletal)? @ -Differential Chest Pain: Stable Angina, Unstable Angina, STEMI, NSTEMI pericarditis, pleurisy, chostochondirits, Pneumothorax, Musculoskeletal, Esophageal Spasm GERD, Cholecystitis, Pancreatitis, Zoster, this is not meant to be an all-inclusive list. EKG interpreted by me (3pts min.). @ -As above X-rays interpreted by me (1pt min.). @ -No cardiomegaly or consolidations, x-ray without fracture or dislocation CT interpreted by me (1pt min.). @ -None done U/S interpreted by me (1pt. min.). @ -None done What testing was considered but not performed or refused? (CT, X-rays, U/S, labs)? Why? @ -None What meds were considered but not given or refused? Why? @ -For the patient Tylenol and [place] for knee pain however he politely declined Did you discuss the management of the patient with other professionals (professionals i.e. BEAU Alvarez, DECK SPECIALIST, lab, RT, psych nurse, social work manager, e commerce analyst, teacher, flight deck officer, pillowcase sewer)? Give summary @ -No Was smoking cessation discussed for >3mins.? @ -No Was critical care preformed (if so, how long)? @ -No Were there social determinants of health that impacted care today? How? (Homelessness, low income, unemployed, alcoholism, drug addiction, transportation, low edu. Level, literacy, decrease access to med. care, prison, rehab)? @ -No Was there de-escalation of care discussed even if they declined (Discuss DNR or withdrawal of care, Hospice)? @ -No What co-morbidities impacted this encounter? (DM, HTN, Smoking, COPD, CAD, Cancer, CVA, ARF, Chemo, Hep., AIDS, mental health diagnosis, sleep apnea, morbid obesity)? @ -Prior CVA Was patient admitted / discharged? Hospital course, mention meds given and route, prescriptions, significant lab abnormalities, going to OR and other pertinent info. @ -Hospital course admitted to [facility] Patient is a pleasant 53 male history of prior CVA, family history NH presenting today for exertional chest pain and dyspnea. Patient well-appearing on assessment, no acute distress. No murmurs on cardiac exam, normal S1-S2 without murmurs rubs or gallops, extremities well-perfused, no lower extremity edema, lungs are clear to auscultation bilaterally with normal excursion. Of note tenderness palpation of the right patella and pain with flexion. No deformity, swelling or erythema of the joint. Reviewed labs obtained in triage, troponin within normal limits, additional labs and imaging reviewed. Grossly within normal limits. Abnormal values not concerning for acute pathology related to presenting complaint. Chest x-ray, I see no cardiomegaly, consolidations or effusions. Discussed with patient plan of care for admission he is agreeable. Patient admitted in stable condition to [facility]. Home meds and admission orders placed. Undiagnosed new problem with uncertain prognosis? @ -No Drug Therapy requiring intensive monitoring for toxicity (Heparin, Nitro, Insulin, Cardizem)? @ -No Were any procedures done? @ -No Diagnosis/symptom? @ -Stable angina, right knee pain Acute, or Chronic, or Acute on Chronic? @acute Uncomplicated (without systemic symptoms) or Complicated (systemic symptoms)? @ -Complicated Side effects of treatment? @ -No Exacerbation, Progression, or Severe Exacerbation? @ -No Poses a threat to life or bodily function? How? (Chest pain, [place], NH, pneumonia, PE, COPD, DKA, ARF, appy, cholecystitis, CVA, Diverticulitis, Homicidal, Suicidal, threat to staff... and all critical care pts) @ -Yes, potentially (Odalys George) Disposition <Cleo Soto - Last Filed: 01/11/24 19:55> <Odalys George - Last Filed: 01/11/24 23:23> Clinical Impression: Stable angina, Right knee pain Disposition: ADMITTED IP TO THIS [facility] Condition: Good
[2024-01-11 20:20] LABS: Basophils % (A) 0 %; Eosinophils # (A) 0.1 k/uL (0-0.7); Eosinophils % (A) 2 %; HCT 45.4 % (39.0-53.0); HGB 14.8 gm/dL (13.0-17.5); Lymphocytes # (A) 1.2 k/uL (1.0-4.8); Lymphocytes % (A) 21 %; MCH 30.3 pg (25.0-35.0); MCHC 32.7 g/dL (31.0-37.0); MCV 92.7 fL (80.0-100.0); Mean Platelet Volume 7.4; Monocytes # (A) 0.3 k/uL (0-1.0); Monocytes % (A) 5 %; Neutrophils % (A) 70 %; Platelet Count 210 k/uL (150-450); RBC 4.89 m/uL (4.30-5.90); RDW 13.8 % (11.5-15.5); WBC 5.7 k/uL (3.8-10.6)
[2024-01-11 20:29] LABS: Partial Thromboplastin Time 24.9 sec (22.0-30.0); Prothrombin Time 10.9 sec (10.0-12.5)
[2024-01-11 20:39] LABS: ALT 31 U/L (4-49); AST 24 U/L (17-59); African American GFR (CKD) >90 (>60 ml/min/1.73 sqM); Albumin 4.4 g/dL (3.5-5.0); Alkaline Phosphatase 70 U/L (38-126); Anion Gap 7 mmol/L; Blood Urea Nitrogen 16 mg/dL (9-20); Calcium 9.5 mg/dL (8.4-10.2); Carbon Dioxide 29 mmol/L (22-30); Chloride 104 mmol/L (98-107); Glucose 103 mg/dL (74-99); Magnesium 1.9 mg/dL (1.6-2.3); Non-African American GFR(CKD) >90 (>60 ml/min/1.73 sqM); Potassium 4.2 mmol/L (3.5-5.1); Sodium 140 mmol/L (137-145); Total Protein 6.9 g/dL (6.3-8.2)
--- NOTE | 2024-01-11 21:15 | XR ---
EXAMINATION TYPE: XR chest 2V DATE OF EXAM: 01/11/2024 COMPARISON: 07/07/2012 INDICATION: Chest pain TECHNIQUE: Single frontal view of the chest is obtained. FINDINGS: The heart size is normal. The pulmonary vasculature is normal. The lungs are clear. IMPRESSION: 1. No acute pulmonary process. [facility], , 01/11/2024 9:13 PM
[2024-01-11] MEDS ORDERED: NITROGLYCERIN SL TABS 0.4 MG TAB SUBLINGUAL PRN (21:54)
[2024-01-11] MEDS ORDERED: MORPHINE SULFATE 4 MG/ML SYRINGE IV PRN (21:54)
[2024-01-11] MEDS: hydrALAZINE HCL 25 MG TAB PO SCH (22:06)
[2024-01-11] MEDS: MIRTAZAPINE 15 MG TAB PO SCH (22:06)
[2024-01-11] MEDS: TAMSULOSIN 0.4 MG CAP.ER.24H PO SCH (22:06)
[2024-01-11] MEDS: MONTELUKAST 10 MG TAB PO SCH (22:06)
[2024-01-11] MEDS: METOPROLOL SUCCINATE (ER) 50 MG TAB.ER.24H PO SCH (22:06)
[2024-01-11] MEDS: NIFEdipine XL 90 MG TAB.ER.24 PO SCH (22:06)
[2024-01-11] MEDS: ASPIRIN 81 MG PO STA (22:09)
--- NOTE | 2024-01-11 22:31 | XR ---
EXAMINATION TYPE: XR knee 4V RT DATE OF EXAM: 01/11/2024 COMPARISON: None HISTORY: Pain over patella TECHNIQUE: Right knee FINDINGS: There is narrowing of the medial compartment joint space. Tibial plateau spurring and media l femoral condylar spurring is present. Posterior-inferior patellar spur is present. Some calcificati on may be within the distal quadriceps tendon. No joint effusion is evident. Patellofemoral joint spa ce appears preserved. There are no acute fractures evident. Follow up exams can be performed 7-10 day s from acute trauma for continued pain. IMPRESSION: 1. Moderate degenerative changes medial compartment right knee. [facility], , 01/11/2024 10:29 PM
[2024-01-12] MEDS ORDERED: REGADENOSON 0.4 MG/5 ML SYRINGE IV PRN (07:53)
[2024-01-12] MEDS ORDERED: AMINOPHYLLINE 500 MG/20 ML VIAL IV PRN (07:53)
[2024-01-12] MEDS ORDERED: CAFFEINE CITRATE 60 MG/3 ML VIAL IV PRN (07:53)
[2024-01-12] MEDS: HYDROcodone/APAP 5-325MG 1 EACH TAB PO PRN (08:03)
[2024-01-12] MEDS: ENOXAPARIN 40 MG/0.4 ML SYRINGE SQ SCH (08:04)
[2024-01-12] MEDS: LOSARTAN 50 MG TAB PO SCH (08:05)
[2024-01-12] MEDS: ASPIRIN 81 MG PO SCH (08:06)
--- NOTE | 2024-01-12 08:43 | P.HPIM ---
History of Present Illness This is a pleasant 53 years old male with past medical history of hemorrhagic stroke last March, currently not on blood thinner. Presents because of chest pain with walking only started yesterday, patient states the pain was 10/10 with walking, currently 0. Associated with shortness of breath. The pain felt in the middle of the chest and between the 2 shoulder blades felt like they will, nonradiating, no obvious precipitating or relieving factors Also patient complaining of from right knee pain and swelling of 1 day duration, no recent history of trauma or falling. Patient has decreased appetite over the last 4 days. No abdominal pain vomiting. No urinary complaints like dysuria or urgency. No headache dizziness, no new weakness numbness or tingling. Patient can use a walker if he walks for long distance His PCP Dr. prado, he does not see other specialist. He has neurosurgeon for his history of hemorrhagic stroke He denies alcohol only occasionally. No smoking or illicit drugs. Vitals are stable He has unremarkable CBC, BMP, liver enzymes Troponin x 2 are less than 0.012 Right knee x-ray showing moderate degenerative changes with medial compartment EKG showing sinus rhythm at [address]-T changes Chest x-ray is negative for acute process. Review of Systems Review of systems CONSTITUTIONAL: No fever, no malaise, no fatigue. HEENT: No recent visual problems or hearing problems. Denied any sore throat. CARDIOVASCULAR: No orthopnea, PND, no palpitations, no syncope. PULMONARY: No shortness of breath, no cough, no hemoptysis. GASTROINTESTINAL: No diarrhea, no nausea, no vomiting, no abdominal pain. Normoactive bowel sounds. NEUROLOGICAL: No headaches, no weakness, no numbness. HEMATOLOGICAL: Denies any bleeding or petechiae. GENITOURINARY: Denies any burning micturition, frequency, or urgency. MUSCULOSKELETAL/RHEUMATOLOGICAL: Denies any joint pain, swelling, or any muscle pain. ENDOCRINE: Denies any polyuria or polydipsia. Past Medical History Past Medical History: Asthma, CVA/TIA, Hypertension History of Any Multi-Drug Resistant Organisms: None Reported Past Surgical History: No Surgical Hx Reported Additional Past Surgical History / Comment(s): drain Past Psychological History: No Psychological Hx Reported Smoking Status: Former smoker Past Alcohol Use History: Occasional Past Drug Use History: None Reported Medications and Allergies Home Medications Medication Instructions Recorded Confirmed Type EPINEPHrine (Auto Inject) [Epipen] 0.3 mg IM ONCE PRN 10/28/21 01/12/24 History Montelukast [Singulair] 10 mg PO HS 10/28/21 01/12/24 History Losartan Potassium [Cozaar] 100 mg PO DAILY 01/12/24 01/12/24 History Metoprolol Succinate [Toprol XL] 50 mg PO BID 01/12/24 01/12/24 History Mirtazapine [Remeron] 15 mg PO HS 01/12/24 01/12/24 History NIFEdipine [Procardia XL] 90 mg PO HS 01/12/24 01/12/24 History Tamsulosin [Flomax] 0.4 mg PO HS 01/12/24 01/12/24 History hydrALAZINE HCL [Apresoline] 25 mg PO Q8H 01/12/24 01/12/24 History Allergies Allergy/AdvReac Type Severity Reaction Status Date / Time bee venom protein (honey bee) Allergy Anaphylaxis Verified 01/12/24 06:55 Sulfa (Sulfonamide Allergy Anaphylaxis Verified 01/12/24 06:55 Antibiotics) Physical Exam Vitals: Vital Signs Temp Pulse Resp BP Pulse Ox FiO2 01/12/24 07:55 98.1 F 62 18 130/91 98 01/12/24 03:40 21 01/12/24 03:36 60 20 123/86 98 01/12/24 02:16 21 01/12/24 00:52 64 20 112/62 98 01/11/24 22:11 75 18 145/99 97 01/11/24 19:49 97.8 F 67 18 135/95 98 Intake and Output 01/11/24 01/12/24 01/12/24 22:59 06:59 14:59 Other: Weight 120.202 kg -GENERAL: The patient is alert and oriented x3, not in any acute distress. Well developed, well nourished. Obese HEENT: Pupils are round and equally reacting to light. EOMI. No scleral icterus. No conjunctival pallor. Normocephalic, atraumatic. No pharyngeal erythema. No thyromegaly. CARDIOVASCULAR: S1 and S2 present. No murmurs, rubs, or gallops. PULMONARY: Chest is clear to auscultation, no wheezing , no crackles. ABDOMEN: Soft, nontender, nondistended, normoactive bowel sounds. No palpable organomegaly. MUSCULOSKELETAL: No joint swelling or deformity. EXTREMITIES: No cyanosis, clubbing, or pedal edema. -NEUROLOGICAL: Gross neurological examination did not reveal any acute focal deficits. Patient has chronic left hemiparesis SKIN: No rashes. no petechiae. Results CBC & Chem 7: 01/11/24 20:01 01/11/24 20:01 Labs: Abnormal Lab Results - Last 24 Hours (Table) 01/11/24 Range/Units 20:01 Glucose 103 H (74-99) mg/dL Assessment and Plan Assessment: Chest pain, suspicious for angina rule out cardiac causes Right knee pain and swelling with x-ray showing medial compartment History of hemorrhagic stroke with left hemiparesis Obesity with BMI of 42.8 History of asthma, not an active issue Plan: Will do serial troponin Cardiology consult Check echocardiogram Consult orthopedic team for his right knee Labs and medication were reviewed.. Continue same treatment. Continue with symptomatic treatment. Resume home medication. Monitor labs and vitals. DVT and GI prophylaxis. Further recommendations as per clinical course of the patient DVT prophylaxis: Subcutaneous Lovenox GI Prophylaxis: Pepcid PT/OT: Pending Prognosis is guarded
[2024-01-12] MEDS: FAMOTIDINE 20 MG/2 ML VIAL IV SCH (08:53)
[2024-01-12 09:30] LABS: LDL Cholesterol,Calculated 84.6 mg/dL (0.0-131.0)
--- NOTE | 2024-01-12 10:29 | P.CRDCN ---
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 Patient does not follow with a certified pharmacist assistant. We have been asked to see the patient in consultation for chest pain. Patient examined at the bedside in the emergency room. Patient states yesterday he began to have episodes of chest pain. He states the pain radiated into his back as well. He denied feeling short of breath. He felt as though somebody was giving him "a really big bear hug". He denies any previous history of CAD. He denies any further episodes of chest pain or pressure. He reports a family history of CAD and states his dad had a CABG in his 50s and has since . He is a nonsmoker. He also reports right knee pain. He denies any trauma or fall. DIAGNOSTICS: - EKG reveals sinus mechanism with no signs of acute ischemia - Chest xray negative for acute process - Laboratory data: WBC 5.7. Hemoglobin 14.8. Platelet count 210. Sodium 140. Potassium 4.2. BUN 16. Creatinine 0.82. Magnesium 1.9. Troponin negative x 3. - Current home cardiac medications include Procardia 90 mg at night, losartan 100 mg daily, hydralazine 25 mg every 8 hours, metoprolol succinate 50 mg twice a day REVIEW OF SYSTEMS: At the time of my exam: CONSTITUTIONAL: Denies fever or chills. HEENT: Denies blurred vision, vision changes, or eye pain. Denies hemoptysis CARDIOVASCULAR: Denies chest pain. Denies orthopnea. Denies PND. Denies palpitations RESPIRATORY: Denies shortness of breath. GASTROINTESTINAL: Denies abdominal pain. Denies nausea or vomiting. HEMATOLOGIC: Denies bleeding disorders. GENITOURINARY: Denies any blood in urine. SKIN: Denies pruitis. Denies rash. PHYSICAL EXAM: VITAL SIGNS: Reviewed. GENERAL: Well-developed in no acute distress. HEENT: Head is normocephalic. Pupils are equal, round. Sclerae anicteric. Mucous membranes of the mouth are moist. Neck supple. No JVD or thyromegaly LUNGS: Respirations even and unlabored. Lungs essentially clear to auscultation bilaterally. HEART: Regular rate and rhythm. S1 and S2 heard. ABDOMEN: Soft. Nondistended. Nontender. EXTREMITIES: Normal range of motion. No clubbing or cyanosis. Peripheral pulses intact. No lower extremity edema NEUROLOGIC: Awake and alert. Oriented x 3. ASSESSMENT: Chest pain, troponin negative x 3 Hypertension History of CVA with residual left-sided weakness, 03/2023 Obstructive sleep apnea Obesity: BMI 42.8 PLAN: An acute coronary event has been ruled out Obtain 2D echo to assess cardiac structure and function Resume home cardiac medications Patient to undergo Lexiscan stress test today If negative, he may be discharged home from a cardiac standpoint Nurse practitioner note has been reviewed by physician. Signing provider agrees with the documented findings, assessment, and plan of care documented by PLANT AND MAINTENANCE TECHNICIAN as a scribe. Past Medical History Past Medical History: Asthma, CVA/TIA, Hypertension History of Any Multi-Drug Resistant Organisms: None Reported Past Surgical History: No Surgical Hx Reported Additional Past Surgical History / Comment(s): drain Past Psychological History: No Psychological Hx Reported Smoking Status: Former smoker Past Alcohol Use History: Occasional Past Drug Use History: None Reported Medications and Allergies Home Medications Medication Instructions Recorded Confirmed Type EPINEPHrine (Auto Inject) [Epipen] 0.3 mg IM ONCE PRN 10/28/21 01/12/24 History Montelukast [Singulair] 10 mg PO HS 10/28/21 01/12/24 History Losartan Potassium [Cozaar] 100 mg PO DAILY 01/12/24 01/12/24 History Metoprolol Succinate [Toprol XL] 50 mg PO BID 01/12/24 01/12/24 History Mirtazapine [Remeron] 15 mg PO HS 01/12/24 01/12/24 History NIFEdipine [Procardia XL] 90 mg PO HS 01/12/24 01/12/24 History Tamsulosin [Flomax] 0.4 mg PO HS 01/12/24 01/12/24 History hydrALAZINE HCL [Apresoline] 25 mg PO Q8H 01/12/24 01/12/24 History Allergies Allergy/AdvReac Type Severity Reaction Status Date / Time bee venom protein (honey bee) Allergy Anaphylaxis Verified 01/12/24 06:55 Sulfa (Sulfonamide Allergy Anaphylaxis Verified 01/12/24 06:55 Antibiotics) Physical Exam Vitals: Vital Signs Temp Pulse Resp BP Pulse Ox FiO2 01/12/24 03:40 21 01/12/24 03:36 60 20 123/86 98 01/12/24 02:16 21 01/12/24 00:52 64 20 112/62 98 01/11/24 22:11 75 18 145/99 97 01/11/24 19:49 97.8 F 67 18 135/95 98 Intake and Output 01/11/24 01/12/24 01/12/24 22:59 06:59 14:59 Other: Weight 120.202 kg Results 01/11/24 20:01 01/11/24 20:01 Cardiac Enzymes 01/11/24 01/11/24 01/11/24 Range/Units 20:01 20:01 22:55 AST 24 (17-59) U/L Troponin I <0.012 <0.012 (0.000-0.034) ng/mL 01/12/24 Range/Units 02:14 AST (17-59) U/L Troponin I <0.012 (0.000-0.034) ng/mL Coagulation 01/11/24 Range/Units 20:01 PT 10.9 (10.0-12.5) sec APTT 24.9 (22.0-30.0) sec CBC 01/11/24 Range/Units 20:01 WBC 5.7 (3.8-10.6) k/uL RBC 4.89 (4.30-5.90) m/uL Hgb 14.8 (13.0-17.5) gm/dL Hct 45.4 (39.0-53.0) % Plt Count 210 (150-450) k/uL Comprehensive Metabolic Panel 01/11/24 Range/Units 20:01 Sodium 140 (137-145) mmol/L Potassium 4.2 (3.5-5.1) mmol/L Chloride 104 (98-107) mmol/L Carbon Dioxide 29 (22-30) mmol/L BUN 16 (9-20) mg/dL Creatinine 0.82 (0.66-1.25) mg/dL Glucose 103 H (74-99) mg/dL Calcium 9.5 (8.4-10.2) mg/dL AST 24 (17-59) U/L ALT 31 (4-49) U/L Alkaline Phosphatase 70 (38-126) U/L Total Protein 6.9 (6.3-8.2) g/dL Albumin 4.4 (3.5-5.0) g/dL Current Medications Generic Name Dose Route Start Last Admin Trade Name Freq PRN Reason Stop Dose Admin Hydrocodone Bitart/Acetaminophen 1 each 01/11/24 21:52 Hydrocodone/Apap 5-325mg 1 Each Tab PO Q6HR PRN Pain Enoxaparin Sodium 40 mg 01/12/24 09:00 Enoxaparin 40 Mg/0.4 Ml Syringe SQ DAILY SRI Hydralazine HCl 25 mg 01/11/24 22:00 01/12/24 00:06 Hydralazine Hcl 25 Mg Tab PO Not Given Q8HR SRI Losartan Potassium 100 mg 01/12/24 09:00 Losartan 50 Mg Tab PO DAILY SRI Metoprolol Succinate 50 mg 01/11/24 22:00 01/11/24 22:06 Metoprolol Succinate (Er) 50 Mg Tab.Er.24h PO 50 mg BID SRI Administration Mirtazapine 15 mg 01/11/24 22:00 01/11/24 22:06 Mirtazapine 15 Mg Tab PO 15 mg HS SRI Administration Montelukast Sodium 10 mg 01/11/24 22:00 01/11/24 22:06 Montelukast 10 Mg Tab PO 10 mg HS SRI Administration Morphine Sulfate 4 mg 01/11/24 21:54 Morphine Sulfate 4 Mg/Ml Syringe IV Q5M PRN Chest Pain Nifedipine 90 mg 01/11/24 22:00 01/11/24 22:06 Nifedipine Xl 90 Mg Tab.Er.24 PO 90 mg HS SRI Administration Nitroglycerin 0.4 mg 01/11/24 21:54 Nitroglycerin Sl Tabs 0.4 Mg Tab SUBLINGUAL Q5M PRN Chest Pain Tamsulosin HCl 0.4 mg 01/11/24 22:00 01/11/24 22:06 Tamsulosin 0.4 Mg Cap.Er.24h PO 0.4 mg HS SRI Administration Intake and Output 01/11/24 01/12/24 01/12/24 22:59 06:59 14:59 Other: Weight 120.202 kg 01/11/24 20:01 01/11/24 20:01
--- NOTE | 2024-01-12 13:01 | NM ---
EXAMINATION TYPE: NM stress lexiscan cardiolite DATE OF EXAM: 01/12/2024 COMPARISON: NONE CLINICAL INDICATION: Male, 53 years old with history of CP; TECHNIQUE: After the intravenous administration of 10.3 mCi Tc 99m Sestamibi - Cardiolite resting SP ECT images acquired 60 minutes post injection. The patient received 0.4mg Lexiscan, 26 mCi Tc 99m Sestamibi - Stress images obtained 64 minutes post injection FINDINGS: Review of stress and rest SPECT images demonstrates reversible perfusion defect involving the anterio r inferior wall of the myocardium.. Gated analysis shows normal wall motion with an estimated left v entricular ejection fraction of 60 %. IMPRESSION: Findings suspicious for small focal reversible ischemia involving the inferior wall of the myocardium . A [place] level critical message alert has been initiated for Sanya Patricia MD~[id number] via the [employer] Critical Results System on 01/12/2024 12:58 PM. This message alert has been sent to Sanya Patricia MD~[id number] via the preferences provided by the clinician for the receipt of Radiology Critical Findi ngs. Message ID [id number]. [facility], , 01/12/2024 12:58 PM
[2024-01-12] MEDS ORDERED: NITROGLYCERIN SL TABS 0.4 MG TAB SUBLINGUAL PRN (13:09)
[2024-01-12] MEDS ORDERED: ALPRAZolam 0.5 MG TAB PO PRN (13:09)
[2024-01-12] MEDS ORDERED: ALPRAZolam 0.25 MG TAB PO PRN (13:09)
--- NOTE | 2024-01-12 13:15 | CA ---
Lexiscan Nuclear Stress Test Report Name: Lencho Benson Exam Date: 01/12/2024 10:42 Exam Location: [place] Stress Ht (in): 66 Wt (lb): 265 BSA: 2.25 Ordering Phys: Kelsey Marcano Referring Phys: KERI Technologist: Mickey Miller Age: 53 Gender: M : 1970 Procedure CPT: Indications: Reflex order-Stress test ICD-10 Codes: Patient History: DIFFICULTY IN BREATHING, ANGINA, HTN, PRIOR CVA, FAMILY HX OF HEART DISEASE, PRIOR SMOKER, ASTHMA Medications: Meds past 24 hrs: Pretest Chest Pain: STRESS TEST Lexiscan Protocol Exercise Duration (min:sec): 02:[address] Depressions (mm): Angina Score: Gatica Score: Resting HR (bpm): 60 Peak HR (bpm): 97 Resting BP (mmHg): 110 / 81 Peak BP (mmHg): 110 / 81 MPHR: 167 Target HR: 142 % MPHR: 58 METS: 1.0 Total Dose: Peak Dose: Atropine: Double Product: 79031 BP Response: Stress Termination: INFUSION COMPLETE Stress Symptoms: NO SYMPTOMS Stress Summary: ECG ANALYSIS Resting ECG: Stress ECG: CONCLUSIONS Nondiagnostic electrocardiogram stress test Dr. Kvng Short MD (Electronically Signed) Final Date: 12 January 2024 13:14
[2024-01-12] MEDS: ASPIRIN 325 MG TAB PO STA (13:22)
[2024-01-12] MEDS: ASPIRIN 81 MG PO STA (13:23)
[2024-01-12] MEDS: ATORVASTATIN 80 MG TAB PO STA (13:23)
[2024-01-12] MEDS: SODIUM CHLORIDE 0.9% 1,000 ML in EMPTY BAG 1 BAG IV SCH (13:38)
[2024-01-12] MEDS: IV FLUID CONTINUATION 1,000 ML IV ONE (14:22)
[2024-01-12] MEDS: LIDOCAINE 1% INJ 10MG/ML (20 ML MDV) SQ ONE (14:26)
[2024-01-12] MEDS: MIDAZOLAM 2 MG/2 ML VIAL IVP ONE (14:26)
[2024-01-12] MEDS: VERAPAMIL SYRINGE (5 MG/10 ML) INTRAARTER ONE (14:28)
[2024-01-12] MEDS: HEPARIN SODIUM 1,000 UN/ML (10ML VL) IV ONE (14:32)
[2024-01-12] MEDS: IOPAMIDOL-370 100ML BTL INJ ONE (14:40)
[2024-01-12] MEDS ORDERED: RX INFO: IV CONTRAST WAS GIVEN 1 EACH MISC MISCELLANE PRN (14:40)
--- NOTE | 2024-01-12 14:42 | P.PCN ---
Date of Procedure: 01/12/24 Operative Findings: CARDIAC CATHETERIZATION PERFORMING PHYSICIAN: Kvng Short MD, RPVI PROCEDURE PERFORMED: 1. Selective right and left coronary angiogram 2. Left heart catheterization 3. Ultrasound-guided access of the right radial artery INDICATION: Symptomatic 53-year-old gentleman with abnormal myocardial perfusion imaging stress test COMPLICATION: None APPROACH: Right radial artery LEVEL OF SEDATION: Moderate with a sedation length of 12 minutes PROCEDURE DESCRIPTION: After obtaining an informed consent, the patient was brought to cardiac chemical laboratory assistant. Local anesthesia was performed using lidocaine subcutaneously. The right radial artery was cannulated using Seldinger technique, the guidewire passed easily, following that we advanced a 5-Libyan sheath dilator assembly, the wire and dilator were removed and sheath was flushed. Following that, 2 mg of verapamil along with 5000 unit heparin were given. Selective right and left coronary angiogram using a 6-Libyan JR4 and JL 3.5 catheters. Following that we did left heart catheterization using 6-Libyan pigtail catheter. The procedure was completed there was no complication. SELECTIVE CORONARY ANGIOGRAM: The right coronary artery: Large-caliber vessel and a dominant vessel appears to be angiographically normal Left main: Is angiographically normal The left circumflex: Large-caliber vessel nondominant vessel appears to be angiographically normal as well The left anterior descending artery: Large-caliber vessel. Is angiographically normal. No evidence of high-grade stenosis was identified HEMODYNAMICS: LVEDP was 5 mmHg with no significant gradient was identified across aortic valve CONCLUSION: 1. Normal coronary angiogram 2. Normal LV end-diastolic pressure/normal left-sided filling pressure POSTPROCEDURE MANAGEMENT: Medical treatment and follow-up with the patient
[2024-01-12] MEDS: HEPARIN SODIUM,PORCINE 10,000 UNIT in SODIUM CHLORIDE 0.9% 1,000 ML IRRIGATION PRN (14:44)
[2024-01-12] MEDS: HEPARIN SODIUM,PORCINE (1 ML) 2,500 UNIT in SODIUM CHLORIDE 0.9% 250 ML IRRIGATION PRN (14:44)
[2024-01-12] MEDS: SODIUM CHLORIDE 0.9% 1,000 ML IV SCH (15:33)
[2024-01-12] MEDS: ATORVASTATIN 40 MG TAB PO SCH (21:07)
--- NOTE | 2024-01-13 08:37 | P.CNOR ---
History of Present Illness - [facility] Consult date: 01/13/24 Consult reason: joint pain (Right knee pain) History of present illness: Patient is a 53-year-old male who presented to [facility] yesterday with regards to chest pain, he underwent an extensive workup by the emergency room staff followed by the cardiology group. During his hospital stay as mentioned significant discomfort of his right knee, orthopedic team was consulted. Patient was evaluated on the medical/surgical floor, he was having breakfast at the side of the bed. Patient has noticed worsening knee pain over the last few days, no change in activity. He denies any recent trauma, this to include falls. He does have a history of a previous hemorrhagic stroke about a year ago which resulted in left-sided weakness. 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 He denies any previous surgery to that knee. Patient has no other orthopedic complaints at this time. Review of Systems Constitutional: Reports as per HPI Past Medical History Past Medical History: Asthma, CVA/TIA, Hypertension Additional Past Medical History / Comment(s): CVA 03/24/23, mild left sided weakness History of Any Multi-Drug Resistant Organisms: None Reported Past Surgical History: No Surgical Hx Reported Additional Past Surgical History / Comment(s): drain Past Psychological History: No Psychological Hx Reported Smoking Status: Former smoker Past Alcohol Use History: Occasional Past Drug Use History: None Reported Medications and Allergies Home Medications Medication Instructions Recorded Confirmed Type EPINEPHrine (Auto Inject) [Epipen] 0.3 mg IM ONCE PRN 10/28/21 01/12/24 History Montelukast [Singulair] 10 mg PO HS 10/28/21 01/12/24 History Losartan Potassium [Cozaar] 100 mg PO DAILY 01/12/24 01/12/24 History Metoprolol Succinate [Toprol XL] 50 mg PO BID 01/12/24 01/12/24 History Mirtazapine [Remeron] 15 mg PO HS 01/12/24 01/12/24 History NIFEdipine [Procardia XL] 90 mg PO HS 01/12/24 01/12/24 History Tamsulosin [Flomax] 0.4 mg PO HS 01/12/24 01/12/24 History hydrALAZINE HCL [Apresoline] 25 mg PO Q8H 01/12/24 01/12/24 History Allergies Allergy/AdvReac Type Severity Reaction Status Date / Time bee venom protein (honey bee) Allergy Anaphylaxis Verified 01/12/24 06:55 Sulfa (Sulfonamide Allergy Anaphylaxis Verified 01/12/24 06:55 Antibiotics) Physical Examination Right lower extremity: No obvious open lesions or sores are visualized throughout the extremity plaque. There is no areas of erythema present. There is a mild effusion present on the knee Patient has generalized tenderness over the anterior aspect of the knee and aydin ng the medial lateral joint line with palpation. Patient is nontender to the proximal thigh, he is nontender with palpation of the lower leg, this to include foot and ankle Logroll maneuver reproduces no groin pain. Patient can extend and flex the knee, there is pain reproduced with deep flexion. Plantarflexion, dorsiflexion, EHL, FHL are intact Patient is stable to both varus and valgus force, no obvious instability present Calf is soft, no tenderness with palpation Sensory exam to light touch is intact throughout the extremity Dorsalis pedis pulses 2+ Results - Labs Labs: Abnormal Lab Results - Last 24 Hours (Table) 01/12/24 Range/Units 02:14 HDL Cholesterol 32.20 L (40.00-60.00) mg/dL H & H 01/11/24 Range/Units 20:01 Hgb 14.8 (13.0-17.5) gm/dL Hct 45.4 (39.0-53.0) % Coagulation 01/11/24 Range/Units 20:01 INR 1.0 (<1.2) Result Diagrams: 01/11/24 20:01 01/11/24 20:01 - Diagnostic results Knee x-ray: report reviewed, image reviewed (X-rays images and reports were reviewed of the right knee. Images demonstrate severe osteoarthritic changes to the medial, lateral and patellofemoral joint, this to include loss of joint space, subchondral sclerosis and osteophyte formation) Assessment and Plan Assessment: Right knee pain Right knee severe tricompartmental osteoarthritis Other medical comorbidities Plan: I was able to discuss the case, this to include both physical exam findings and imaging studies my attending. No orthopedic surgical intervention is rec ommended at this time We did discuss patient's osteoarthritis and different options for treatment in the future. Patient will need a total knee replacement in the future. We discussed more conservative measures, this to include the possibility of injections, cortisone versus viscosupplementation. We also discussed the possibility of possible arthroscopic surgery. I would like the patient to f ollow-up in the outpatient setting for recheck in the next 10 to 14 days Conservative measures at this time to include icing and elevating, use of Tylenol and NSAIDs Weight-bear as tolerated Other medical specialty recommendations appreciated Discharge planning: On orthopedic standpoint patient is stable for discharge and follow-up in the outpatient setting Time with Patient: Less than 30
--- NOTE | 2024-01-13 10:52 | P.PN ---
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 Patient does not follow with a pharmacy clerk. We have been asked to see the patient in consultation for chest pain. Patient examined at the bedside in the emergency room. Patient states yesterday he began to have episodes of chest pain. He states the pain radiated into his back as well. He denied feeling short of breath. He felt as though somebody was giving him "a really big bear hug". He denies any previous history of CAD. He denies any further episodes of chest pain or pressure. He reports a family history of CAD and states his dad had a CABG in his 50s and has since . He is a nonsmoker. He also reports right knee pain. He denies any trauma or fall. DIAGNOSTICS: - EKG reveals sinus mechanism with no signs of acute ischemia - Chest xray negative for acute process - Laboratory data: WBC 5.7. Hemoglobin 14.8. Platelet count 210. Sodium 140. Potassium 4.2. BUN 16. Creatinine 0.82. Magnesium 1.9. Troponin negative x 3. - Current home cardiac medications include Procardia 90 mg at night, losartan 100 mg daily, hydralazine 25 mg every 8 hours, metoprolol succinate 50 mg twice a day 01/13/2024 Patient is status post cardiac catheterization yesterday with Dr. Short revealing normal coronary arteries and normal LVEDP. Patient examined this morning the bedside. He denies any further episodes of chest pain or pressure. Denies shortness of breath. Vital signs are stable. 2D echo remains pending. PHYSICAL EXAM: VITAL SIGNS: Reviewed. GENERAL: Well-developed in no acute distress. HEENT: Head is normocephalic. Pupils are equal, round. Sclerae anicteric. Mucous membranes of the mouth are moist. Neck supple. No JVD or thyromegaly LUNGS: Respirations even and unlabored. Lungs essentially clear to auscultation bilaterally. HEART: Regular rate and rhythm. S1 and S2 heard. ABDOMEN: Soft. Nondistended. Nontender. EXTREMITIES: Normal range of motion. No clubbing or cyanosis. Peripheral pulses intact. No lower extremity edema NEUROLOGIC: Awake and alert. Oriented x 3. ASSESSMENT: Chest pain, troponin negative x 3 Abnormal Lexiscan, false positive, status post cardiac catheterization revealing normal coronary arteries Hypertension History of CVA with residual left-sided weakness, 03/2023 Obstructive sleep apnea Obesity: BMI 42.8 PLAN: Check d-dimer Continue current cardiac medications Patient is stable for discharge home today from a cardiac standpoint if echo is unremarkable He is to follow-up postdischarge in the office with Dr. Short Nurse practitioner note has been reviewed by physician. Signing provider agrees with the documented findings, assessment, and plan of care documented by [employer] SPECIALIST as a scribe. Objective - Vital Signs Vital signs: Vital Signs Temp 98.3 F 01/13/24 07:15 Pulse 75 01/13/24 07:15 Resp 18 01/13/24 07:15 BP 136/96 01/13/24 07:15 Pulse Ox 96 01/13/24 07:15 FiO2 21 01/13/24 00:22 Intake & Output 01/12/24 01/13/24 01/13/24 18:59 06:59 18:59 Intake Total 680 0 Balance 680 0 Weight 120.202 kg Intake: IV 200 Oral 480 0 Other: # Voids 2 - Labs CBC & Chem 7: 01/11/24 20:01 01/11/24 20:01
[2024-01-13] MEDS: FAMOTIDINE 20 MG TAB PO SCH (11:30)
[2024-01-13 14:22] VITALS: TEMP 98.7
--- NOTE | 2024-01-13 19:47 | CA ---
Transthoracic Echo Report Name: Lencho Benson Age: 53 Gender: M : 1970 Exam Date: 01/12/2024 16:54 Exam Location: [facility] Ht (in): 66 Wt (lb): 265 Ordering Physician: Kelsey aMrcano Attending/Referring Phys: [id number], [employer] Senior Sergeant Ca Kothari RDCS Procedure CPT: Indications: CP, LV function Cardiac Hx: Technical Quality: Technically difficult study Contrast 1: Definity Total Dose (mL): 2 Contrast 2: Total Dose (mL): MEASUREMENTS (Male / Female) Normal Values 2D ECHO LV Diastolic Diameter PLAX 4.3 cm 4.2 - 5.9 / 3.9 - 5.3 cm LV Systolic Diameter PLAX 2.3 cm IVS Diastolic Thickness 1.7 cm 0.6 - 1.0 / 0.6 - 0.9 cm LVPW Diastolic Thickness 1.4 cm 0.6 - 1.0 / 0.6 - 0.9 cm LV Relative Wall Thickness 0.7 RV Internal Dim ED PLAX 4.3 cm LA Volume 52.4 cm??? 18 - 58 / 22 - 52 cm??? LA Volume Index 21.6 cm???/m??? 16 - 28 cm???/m??? M-MODE Aortic Root Diameter MM 4.0 cm LA Systolic Diameter MM 5.1 cm LA Ao Ratio MM 1.3 DOPPLER AV Peak Velocity 107.2 cm/s AV Peak Gradient 4.6 mmHg AV Mean Velocity 74.8 cm/s AV Mean Gradient 2.5 mmHg AV Velocity Time Integral 19.6 cm LVOT Peak Velocity 79.4 cm/s LVOT Peak Gradient 2.5 mmHg LVOT Velocity Time Integral 18.7 cm MV Area PHT 3.0 cm??? Mitral E Point Velocity 54.5 cm/s Mitral A Point Velocity 73.5 cm/s Mitral E to A Ratio 0.7 MV Deceleration Time 254.1 ms MV E' Velocity 6.6 cm/s Mitral E to MV E' Ratio 8.3 FINDINGS Left Ventricle Severely increased left ventricular wall thickness. Left ventricular cavity size normal. Normal left ventricular systolic function with no obvious regional wall motion abnormalities. Left ventricular ejection fraction is estimated at 55-60 %. Grade 1 diastolic dysfunction. Right Ventricle Right ventricular dilatation. Right ventricular systolic pressure within normal limits. Right Atrium Right atrium not well visualized. Left Atrium Mildly increased left atrial area. Mitral Valve Structurally normal mitral valve. Mitral valve thickened. Mild mitral annular calcification. Mild mitral regurgitation. Aortic Valve No aortic valve stenosis or regurgitation. Tricuspid Valve Mild tricuspid regurgitation. Pulmonic Valve Structurally normal pulmonic valve. Pericardium No pericardial effusion. Aorta Normal size aortic root and proximal ascending aorta. CONCLUSIONS Diagnosis Chest discomfort LVH with preserved systolic function Mild RV enlargement Prominent posterior pericardial stripe Previewed by: Dr. Torres Guillen MD (Electronically Signed) Final Date: 13 January 2024 19:47
[2024-01-13 21:14] VITALS: BP 130/86; PULSE 81; RESP 17
--- NOTE | 2024-01-14 05:29 | P.DS ---
Providers Date of admission: 01/11/24 21:57 Attending physician: Sanya Patricia Consults: 01/11/24 21:57 Consult Physician Urgent Consulting Provider: Don Pringle Consult Reason/Comments: Stable angina Do you want consulting provider notified?: Yes, Notify in am 01/12/24 08:40 Consult Physician Routine Consulting Provider: Nick Lennon Consult Reason/Comments: Right knee pain and swelling Do you want consulting provider notified?: Yes Primary care physician: Kevin Caruso MD Hospital Course: Diagnoses: Chest pain, had a normal cardiac cath. Negative D-dimer Right knee pain and swelling with x-ray showing medial compartment. Follow-up with orthopedic as an outpatient History of hemorrhagic stroke with left hemiparesis Obesity with BMI of 42.8 History of asthma, not an active issue Hospital course: This is a pleasant 53 years old male with past medical history of hemorrhagic stroke last March, currently not on blood thinner. Presents because of chest pain with walking only started yesterday, patient states the pain was 10/10 with walking, currently 0. Associated with shortness of breath. Patient evaluated by cardiology team. He had cardiac cath showing Unremarkable coronary arteries. D-dimer was negative at 0.39. Echocardiogram showed preserved ejection fraction with 55 to 60%. Patient chest pain improved. No dyspnea. No other new complaint. Patient and are eager to be discharged today. Patient was cleared for discharge by associate professor of literacy after the echocardiogram was read by Dr. lópez. Problems and management plan were discussed with the patient and he verbalized understanding and acceptance Patient was found stable and can be discharged home in guarded prognosis however he needs follow-up as an outpatient. Patient was instructed to follow up with PCP within one week and patient agrees Patient was instructed to follow-up with associate professor of literacy Dr. Samson and orthopedic Dr. Abdullahi send in 1 to 2 weeks after discharge and he agrees Physical exam Gen: patient is a AAOx3, no distress CVS: S1-S2, RRR, no murmur Lungs: B/L CTA, no wheezing Abdomen: soft, no distention, no tenderness, positive bowel sounds Extremity: no leg edema or induration Time spent more than 35 minutes Patient Condition at Discharge: Good Plan - Discharge Summary New Discharge Prescriptions: New Atorvastatin [Lipitor] 40 mg PO HS 30 Days #30 tab Continue EPINEPHrine (Auto Inject) [Epipen] 0.3 mg IM ONCE PRN PRN Reason: Anaphylaxis Tamsulosin [Flomax] 0.4 mg PO HS Mirtazapine [Remeron] 15 mg PO HS Losartan Potassium [Cozaar] 100 mg PO DAILY NIFEdipine [Procardia XL] 90 mg PO HS Montelukast [Singulair] 10 mg PO HS hydrALAZINE HCL [Apresoline] 25 mg PO Q8H Metoprolol Succinate [Toprol XL] 50 mg PO BID Discharge Medication List EPINEPHrine (Auto Inject) [Epipen] 0.3 mg IM ONCE PRN 10/28/21 [History] Montelukast [Singulair] 10 mg PO HS 10/28/21 [History] Losartan Potassium [Cozaar] 100 mg PO DAILY 01/12/24 [History] Metoprolol Succinate [Toprol XL] 50 mg PO BID 01/12/24 [History] Mirtazapine [Remeron] 15 mg PO HS 01/12/24 [History] NIFEdipine [Procardia XL] 90 mg PO HS 01/12/24 [History] Tamsulosin [Flomax] 0.4 mg PO HS 01/12/24 [History] hydrALAZINE HCL [Apresoline] 25 mg PO Q8H 01/12/24 [History] Atorvastatin [Lipitor] 40 mg PO HS 30 Days #30 tab 01/13/24 [Rx] Follow up Appointment(s)/Referral(s): Kvng Short MD [STAFF PHYSICIAN] - 2 Weeks Kevin Caruso MD [Primary Care Provider] - 1-2 days Nick Lennon DO [Doctor of Osteopathic Medicine] - 10 Days Activity/Diet/Wound Care/Special Instructions: heart healthy diet activity is restricted till you see your doctor Discharge Disposition: HOME SELF-CARE
== END 2024-01-13 20:47 | disposition home or self-care (01) ==
LOC: EC 19:40 → 6NMEDSUR 21:57 → UNDODISOB 01-12 15:28 → 6NMEDSUR 01-12 15:35
PROVIDERS: ADMIT Hospitalist; ATTEND Hospitalist
DX: R07.89 Other chest pain (principal); I20.89 Other forms of angina pectoris; R94.39 Abnormal result of other cardiovascular function study; J45.909 Unspecified asthma, uncomplicated; M17.11 Unilateral primary osteoarthritis, right knee; G47.33 Obstructive sleep apnea (adult) (pediatric); I10 Essential (primary) hypertension; I69.254 Hemiplegia and hemiparesis following other nontraumatic intracranial hemorrhage affecting left non-dominant side; Z68.41 Body mass index [BMI] 40.0-44.9, adult; E66.9 Obesity, unspecified; Z79.51 Long term (current) use of inhaled steroids; Z79.899 Other long term (current) drug therapy; Z88.2 Allergy status to sulfonamides; Z91.030 Bee allergy status; Z87.891 Personal history of nicotine dependence; Z82.49 Family history of ischemic heart disease and other diseases of the circulatory system
CPT/HCPCS: 36415; 71046; 78452; 80053; 80061; 83735; 84484; 85025; 85379; 85610; 85730; 93005; 93017; 93306; 93458; 94660; 96372; 96374; 96376; 99285

== ENCOUNTER → 2024-01-29 | Outpatient (CLI) | payer BC ==
[2024-02-05 16:35] LABS: Albumin, LC/MS/MS 4.6 g/dL (3.6-5.1); Testosterone, Free, LC/MS/MS 35.7 pg/mL (46.0-224.0)
== END | disposition home or self-care (01) ==
LOC: LABWHC1 11:40
PROVIDERS: ATTEND Family Medicine
DX: R79.89 Other specified abnormal findings of blood chemistry (principal)
CPT/HCPCS: 36415; 82040; 84270; 84403

== ENCOUNTER → 2024-05-03 | Outpatient (CLI) | payer BC ==
[2024-05-03 17:01] VITALS: BP 134/86; PULSE 88; RESP 18; TEMP 98.4
--- NOTE | 2024-05-03 18:01 | P.PROGSL ---
Subjective DATE: 05/03/2024 FOLLOW UP VISIT. Patient with obstructive sleep apnea hypopnea syndrome return to sleep center for follow-up visit. Information from previous visit have been reviewed. Patient is using PAP equipment every night for the whole night, getting PAP supplies in time. The patient does not have significant problems with the mask, PAP unit and humidification. [place] sleepiness scale is 7, which is normal. I checked information from PAP unit. PAP unit pressure maximal inspiratory pressure 19, minimal expiratory pressure 5, pressure support 4, average pressure 16.2/12.2 cm H2O. Usage is 98% for more then 4 hours, average 8.2 hours per night. Leak is 8 l/m, which is in acceptable range. Apnea Hypopnea Index is 6.4 for the last night, which is borderline. MEDICATIONS have been reviewed, please see below. During physical exam: GENERAL: A pleasant patient without any distress. VITAL SIGNS: Please see below, weight is 269 lbs. HEENT: PERRLA, EOMI.low position of soft palate, Mallapati 4 . NECK: Supple. No JVD. LUNGS: Clear to percussion and to auscultation. Good air exchange. No wheezing or rhonchi. HEART: S1, S2 regular. ABDOMEN: Soft and nontender.[] EXTREMITIES: No clubbing or cyanosis. HOOK AND EYE ATTACHER: Awake, alert, and oriented x3. No focal deficit. Impressions: 1. Obstructive sleep apnea-hypopnea syndrome. Patient demonstrated great compliance with treatment, benefiting from treatment. 2. Obesity, BMI 44, patient increased weight on 4 pounds comparing with previous visit. 3. Status post hemorrhagic stroke in 2022 with residual left-sided weakness. 4. History of ADHD. 5. Hypertension. 6. Asthma. Plan: 1. Continue using PAP equipment every night for the whole night. 2. Sleep hygiene with regular time in bed for at least 7.5-8 hours 3. PAP unit should stay lower then position of the head. 4. Advised patient to remove all remaining water from humidifier canister daily and make it dry after each usage. Refill canister with fresh distilled water before each usage. 5. Watching and losing weight. 6. Precautions related to driving. No driving if feel any sleepiness. 7. I will maintain prescription for PAP supplies including mask, tube, filters. 8. Follow up visit in 8 months or earlier if patient has any problems. Thank you very much for allowing me to participate in the management of your patient. Isra Skinner MD, PhD, FAASM. Diplomat of [employer], Sleep Medicine Board by [employer] [facility] [place] Objective - Vital Signs Vital Signs: Vital Signs Temp 98.4 F 05/03/24 17:00 Pulse 88 05/03/24 17:00 Resp 18 05/03/24 17:00 BP 134/86 05/03/24 17:00 Pulse Ox 97 05/03/24 17:00 FiO2 Intake & Output 05/02/24 05/03/24 05/03/24 18:59 06:59 18:59 Weight 122.016 kg Home Medications: Home Medications Medication Instructions Recorded Confirmed Type EPINEPHrine (Auto Inject) [Epipen] 0.3 mg IM ONCE PRN 10/28/21 01/12/24 History Montelukast [Singulair] 10 mg PO HS 10/28/21 01/12/24 History Losartan Potassium [Cozaar] 100 mg PO DAILY 01/12/24 01/12/24 History Metoprolol Succinate [Toprol XL] 50 mg PO BID 01/12/24 01/12/24 History Mirtazapine [Remeron] 15 mg PO HS 01/12/24 01/12/24 History NIFEdipine [Procardia XL] 90 mg PO HS 01/12/24 01/12/24 History Tamsulosin [Flomax] 0.4 mg PO HS 01/12/24 01/12/24 History hydrALAZINE HCL [Apresoline] 25 mg PO Q8H 01/12/24 01/12/24 History Atorvastatin [Lipitor] 40 mg PO HS 30 Days #30 tab 01/13/24 Rx
== END ==
LOC: 3 N SLEEP 16:03
PROVIDERS: ATTEND Internal Medicine
DX: G47.33 Obstructive sleep apnea (adult) (pediatric) (principal); E66.9 Obesity, unspecified; F90.9 Attention-deficit hyperactivity disorder, unspecified type; I10 Essential (primary) hypertension; J45.909 Unspecified asthma, uncomplicated; Z68.41 Body mass index [BMI] 40.0-44.9, adult; Z86.73 Personal history of transient ischemic attack (TIA), and cerebral infarction without residual deficits; Z91.030 Bee allergy status; Z88.2 Allergy status to sulfonamides
CPT/HCPCS: 99212

== ENCOUNTER → 2024-10-31 | Outpatient (CLI) | payer BC ==
--- NOTE | 2024-11-01 08:50 | MR ---
EXAMINATION TYPE: MR lumbar spine wo con DATE OF EXAM: 10/31/2024 2:09 PM COMPARISON: CT. 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 IV Contrast: mL (None, if empty) FINDINGS: Alignment: The lumbar vertebral bodies have preserved heights with grade 1 anterolisthesis of L4 on L 5. Cord: The conus medullaris and the distal spinal cord appear unremarkable with regards to their signa l intensity and morphology. Bones/Discs: Moderate to severe disc space narrowing at L5-S1 scattered more mild to moderate scatter ed Schmorl's nodes, facet arthropathy with osteophytes present. Intervertebral disc signal is [place]. Reactive adjoining endplate edema at L5-S1. Diffuse low bone marrow signal throughout the visual ized osseous structures. T12-L1: No evidence of significant spinal canal stenosis or neural foraminal stenosis. L1-L2: No evidence of significant spinal canal stenosis or neural foraminal stenosis. L2-L3: There is what is thought to be disc material bilaterally in the left and right central locatio ns extending towards the cauda equina series 601 image 17r with 7 mm inferior migration on the left a nd 9 mm inferior migration the right is closely approximates nerve roots series 601 image 17. L3-L4: Abundance of fat at this level narrows the thecal sac with moderate to severe cauda equina bun taj. Facet joint arthropathy mild bilateral neural foraminal stenosis. e disc material is layering along the posterior longitudinal ligament series 301 image 9 possibly from the L3-L4 disc space with inferior migration up to 10 mm superior migration up to 5 mm. This closely approximated nerve roots s eries 601 image 22. L4-L5: Grade 1 anterolisthesis of L4 on L5 with disc uncovering. Abundance of fat at this level narro ws the thecal sac with moderate to severe cauda equina bunching. Facet joint arthropathy moderate edin ateral neural foraminal stenosis. L5-S1: Abundance of fat at this level narrows the thecal sac with moderate to severe cauda equina bun taj. Facet joint arthropathy severe right and moderate left neural foraminal stenosis. No evidence for disc bulge or herniation. No significant spinal canal or neural foraminal stenosis in the remainder of the visualized levels. Other findings: None. IMPRESSION: 1. There appears to be disc material posterior to the L3-L4 and L2-L3 vertebral bodies levels. There is inferior migration at L3-L4 and inferior migration at L2-L3. This closely approximates nerve root s at L2-L3 and at L3-L4. 2. Epidural lipomatosis extending from L3-L4 and inferiorly results in moderately to severely bunche s the cauda equina together. 3. 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 4. Diffuse red marrow conversion can be seen in the setting of tobacco abuse, anemia, or myeloprolife rative disorder. [facility], , 11/01/2024 8:47 AM
== END | disposition home or self-care (01) ==
LOC: RADMRIMAIN 13:06
PROVIDERS: ATTEND Family Medicine
DX: M51.16 Intervertebral disc disorders with radiculopathy, lumbar region (principal); M47.26 Other spondylosis with radiculopathy, lumbar region; E88.2 Lipomatosis, not elsewhere classified; M48.061 Spinal stenosis, lumbar region without neurogenic claudication; R93.7 Abnormal findings on diagnostic imaging of other parts of musculoskeletal system; M47.27 Other spondylosis with radiculopathy, lumbosacral region
CPT/HCPCS: 72148